=== PATIENT | female | born 1940 | race Caucasian/White ===

== ENCOUNTER → 2016-05-19 | Outpatient (CLI) | payer OTHER ==
[~2016-05-19] MED LIST: ATN50T PO; FLEC50TA3 PO; NITR100C3 PO; ONDA4TAB8 PO; SPRN25T PO; WRF5T PO
[2016-05-19 07:50] LABS: BASOPHILS % (AUTO) 1 % (0-2); EOSINOPHILS # (AUTO) 0.1 10^3uL; EOSINOPHILS % (AUTO) 2 % (0-4); LYMPHOCYTES # (AUTO) 1.9 X10^3; MEAN CORPUSCULAR HEMOGLOBIN 30.7 PG (26.0-34.0); MEAN CORPUSCULAR HGB CONC 33.6 g/dL (31.0-37.0); MEAN CORPUSCULAR VOLUME 91 FL (80-100); MEAN PLATELET VOLUME 10.7 FL (6.0-9.5); MONOCYTES # (AUTO) 0.5 X10^3; MONOCYTES % (AUTO) 8 % (3-11); NEUTROPHILS # (AUTO) 4.5 X10^3; NEUTROPHILS % (AUTO) 64 % (51-67); PLATELET COUNT 169 10^3uL (150-450); WHITE BLOOD COUNT 7.11 10^3uL (4.0-11.0)
[2016-05-19 08:10] LABS: BILIRUBIN,URINE Negative (Negative); CLARITY,URINE Clear; COLOR,URINE Yellow; GLUCOSE, URINE (UA) Negative (Negative); LEUKOCYTE ESTERASE ,URINE Negative (Negative); PH,URINE 5.5 (5.0 - 8.0); UROBILINOGEN,URINE 0.2 mg/dL (0.2-1.0)
[2016-05-19 08:24] LABS: ALBUMIN 3.9 g/dL (3.4-5.0); ANION GAP 15.4 MEQ/L (3-15); CALCULATED IONIZED CALCIUM 4.2 mg/dL (3.8-4.6); TOTAL PROTEIN 6.6 g/dL (6.4-8.5)
== END ==
LOC: LAB 07:33
PROVIDERS: ATTEND Family Medicine
DX: E78.4 Other hyperlipidemia (principal); I10 Essential (primary) hypertension; Z87.39 Personal history of other diseases of the musculoskeletal system and connective tissue; K20.8 Other esophagitis; E04.1 Nontoxic single thyroid nodule
CPT/HCPCS: 36415; 80053; 80061; 81003; 84443; 85025

== ENCOUNTER 2016-06-09 09:00 | Outpatient (RCR) | payer OTHER | END 2016-06-24 12:00 | disposition home or self-care (01) | LOC: PT 09:00 | PROVIDERS: ATTEND Family Medicine | DX: M54.2 Cervicalgia (principal); M75.41 Impingement syndrome of right shoulder ==

== ENCOUNTER → 2016-07-20 | Outpatient (CLI) | payer OTHER | LOC: RAD 08:54 | PROVIDERS: ATTEND Otolaryngology | DX: E04.1 Nontoxic single thyroid nodule (principal) | CPT/HCPCS: 76536 ==

== ENCOUNTER → 2016-08-20 | Outpatient (CLI) | payer OTHER | LOC: LAB 17:57 | PROVIDERS: ATTEND Family Medicine | DX: I48.0 Paroxysmal atrial fibrillation (principal) | CPT/HCPCS: 36415; 85610 ==

== ENCOUNTER → 2016-09-14 | Outpatient (REF) | payer OTHER | LOC: LAB 10:28 | PROVIDERS: ATTEND Family Medicine | DX: I10 Essential (primary) hypertension (principal); I48.0 Paroxysmal atrial fibrillation; R06.09 Other forms of dyspnea | CPT/HCPCS: 85014; 85018 ==

== ENCOUNTER → 2016-09-14 | Outpatient (CLI) | payer OTHER ==
--- NOTE | 2016-09-14 13:07 | Diagnostic Imaging Report ---
INDICATION: Dyspnea. COMPARISON: 12/09/2015. FINDINGS: The lungs are clear. No pleural effusion or pneumothorax. Stable eventration of the right hemidiaphragm. Stable mild cardiomegaly. Surgical clips in the right axilla suggest prior right axillary lymph node dissection. Normal pulmonary vasculature. IMPRESSION: 1. No acute cardiopulmonary process. 2. Stable focal eventration of the right hemidiaphragm. Dictated by: Dictated on workstation # [id number]
== END ==
LOC: RAD 10:32
PROVIDERS: ATTEND Family Medicine
DX: R06.09 Other forms of dyspnea (principal)
CPT/HCPCS: 71020